=== PATIENT | male | born 1985 ===

== ENCOUNTER 2023-04-22 18:00 | Inpatient (IN) | payer OTHER ==
[~2023-04-22] VITALS: Ht 177.8 cm; Wt 90.7 kg
[~2023-04-22 18:00] MED LIST: MULT-1045 PO; THIA100T74 PO
[2023-04-22] MEDS ORDERED: LORAZEPAM 2 MG/1 ML VIAL IV ONE (18:15)
[2023-04-22] MEDS ORDERED: IV NORMAL SALINE 1000 ML BAG IV ONE (18:15)
[2023-04-22] MEDS ORDERED: LEVE500T9 PO (18:24)
[2023-04-22] MEDS ORDERED: IV D5/ 0.9% NACL 1,000 ML IV PRN (19:15)
[2023-04-22] MEDS ORDERED: levETIRAcetam IV 500 MG in IV DEXTROSE 5% 100 ML IV ONE (19:45)
[2023-04-22 19:53] LABS: BASOPHILS % (AUTO) 0.6 % (0.0-2.0); EOSINOPHILS % (AUTO) 0.9 % (0.0-7.0); HEMATOCRIT 40.5 % (36.7-47.1); HEMOGLOBIN 13.5 g/dL (12.5-16.3); LYMPHOCYTES # (AUTO) 0.8 K/uL (0.8-4.8); LYMPHOCYTES % (AUTO) 16.2 % (20.5-51.5); MEAN CORPUSCULAR HGB CONC 33 g/dL (32.5-36.3); MEAN CORPUSCULAR VOLUME 95.7 fL (73.0-96.2); MONOCYTES # (AUTO) 0.3 K/uL (0.1-1.30); MONOCYTES % (AUTO) 5.2 % (0.0-11.0); NEUTROPHILS # (AUTO) 3.8 K/uL (1.8-8.9); NEUTROPHILS % (AUTO) 77.1 % (38.5-71.5); PLATELET COUNT (AUTO) 154 K/uL (152-348); RED BLOOD CELL COUNT(AUTO) 4.23 MIL/uL (4.06-5.63); RED CELL DISTRIBUTION WIDTH 16.2 % (12.1-16.2); WHITE BLOOD COUNT (AUTO) 4.9 K/uL (3.6-10.2)
[2023-04-22] MEDS ORDERED: MAGNESIUM SULFATE/D5W 100 ML ONE ×2 (19:54→22:11)
[2023-04-22] MEDS ORDERED: LORAZEPAM 2 MG/1 ML VIAL ONE (19:55)
[2023-04-22 19:56] LABS: DIFFERENTIAL COMMENT 1
[2023-04-22] MEDS ORDERED: levETIRAcetam 500 MG/5 ML VIAL IV ONE (19:56)
[2023-04-22 20:05] LABS: CALCIUM 8.6 mg/dL (8.5-10.1); CARBON DIOXIDE 23 mmol/L (21-32); CHLORIDE 103 mmol/L (98-107); CREATININE 0.5 mg/dL (0.6-1.3); GLUCOSE 102 mg/dL (74-106); POTASSIUM 3.9 mmol/L (3.5-5.1); SODIUM SERUM 140 mmol/L (136-145); UREA NITROGEN, BLOOD 7 mg/dL (7-18)
[2023-04-22 20:08] LABS: ETHANOL 326 MG/DL (0-10)
[2023-04-22] MEDS: MAGNESIUM SULFATE/D5W 100 ML IV SCH ×2 (20:15→21:16)
[2023-04-22 20:19] LABS: ALANINE AMINOTRANSFERASE 25 U/L (16-63); ALBUMIN 3.6 g/dL (3.4-5.0); ALKALINE PHOSPHATASE 133 U/L (50-136); ASPARTATE AMINOTRANSFERASE 38 U/L (15-37); BILIRUBIN,DIRECT 0.1 mg/dL (0.0-0.2); BILIRUBIN,TOTAL 0.3 mg/dL (0.2-1.0)
[2023-04-22] MEDS ORDERED: THIAMINE HCL 200 MG/2 ML VIAL IV ONE (20:30)
[2023-04-22] MEDS ORDERED: DEXTROSE 5 %-0.45 % NACL 500 ML IV.SOLN IV ONE (21:15)
[2023-04-22] MEDS ORDERED: THIAMINE HCL 200 MG/2 ML VIAL ONE (21:24)
[2023-04-23] MEDS ORDERED: ONDANSETRON 4 MG/2 ML VIAL IV PRN (00:30)
[2023-04-23] MEDS ORDERED: ACETAMINOPHEN 325 MG TABLET PO PRN (00:30)
[2023-04-23] MEDS ORDERED: LORAZEPAM 2 MG/1 ML VIAL IV PRN (00:30)
[2023-04-23] MEDS ORDERED: IV NS 1000 ML 1,000 ML IV PRN (00:30)
[2023-04-23] MEDS ORDERED: CHLORDIAZEPOXIDE HCL 25 MG CAPSULE PO SCH (06:00)
[2023-04-23] MEDS ORDERED: CHLORDIAZEPOXIDE HCL 25 MG CAPSULE ONE (07:34)
[2023-04-23] MEDS ORDERED: ONDANSETRON 4 MG/2 ML VIAL ONE (07:47)
[2023-04-23] MEDS ORDERED: THIAMINE HCL 100 MG TABLET PO SCH ×2 (09:00)
[2023-04-23] MEDS ORDERED: FOLIC ACID 1 MG TABLET PO SCH (09:00)
[2023-04-23] MEDS ORDERED: levETIRAcetam 500 MG TABLET PO ONE (09:00)
[2023-04-23] MEDS ORDERED: MULTIVITAMINS,THERAPEUTIC TABLET PO SCH (09:00)
[2023-04-23] MEDS ORDERED: ENOXAPARIN SODIUM 40 MG/0.4 ML DISP.SYRIN SQ SCH (09:00)
[2023-04-23] MEDS ORDERED: levETIRAcetam 250 MG TABLET ONE (09:03)
[2023-04-23] MEDS ORDERED: ENOXAPARIN SODIUM 40 MG/0.4 ML DISP.SYRIN SQ ONE (09:03)
[2023-04-23] MEDS ORDERED: THIAMINE HCL 100 MG TABLET ONE (09:03)
[2023-04-23] MEDS ORDERED: FOLIC ACID 1 MG TABLET ONE (09:03)
[2023-04-23] MEDS ORDERED: LORAZEPAM 2 MG/1 ML VIAL ONE (09:22)
[2023-04-23 13:12] VITALS: BP 129/66; O2SAT 98
[2023-04-23] MEDS ORDERED: levETIRAcetam 500 MG TABLET PO SCH (21:00)
== END 2023-04-23 12:10 | disposition left against medical advice (07) | DRG 53 ==
LOC: ER 18:07 → MERGE 04-23 00:45 → TRANSITION 04-23 00:45
PROVIDERS: ADMIT Nurse Practitioner Acute Care; ATTEND Nurse Practitioner Acute Care
DX: G40.509 Epileptic seizures related to external causes, not intractable, without status epilepticus (principal); G92.8 Other toxic encephalopathy; F10.229 Alcohol dependence with intoxication, unspecified; F10.239 Alcohol dependence with withdrawal, unspecified; I10 Essential (primary) hypertension; Y90.8 Blood alcohol level of 240 mg/100 ml or more; Z87.820 Personal history of traumatic brain injury; F17.290 Nicotine dependence, other tobacco product, uncomplicated
CPT/HCPCS: 36415; 70450; 71045; 80299; 83735; 85025; 93005; G0378; G0480; J1650; J1953; J2060; J2405; J3411; J3475

== ENCOUNTER 2023-04-23 19:12 | Emergency (ER) | payer OTHER ==
[~2023-04-23] VITALS: Ht 175.3 cm; Wt 90.7 kg
[~2023-04-23 19:12] MED LIST changes: +LEVE500T9 PO
[2023-04-24 00:26] LABS: HEMATOCRIT 40.1 % (36.7-47.1)
[2023-04-24 00:27] LABS: *BILIRUBIN,URIN NEGATIVE (NEGATIVE); *BLOOD, URINE NEGATIVE (NEGATIVE); *CLARITY,URINE CLEAR (CLEAR); *COLOR,URINE YELLOW (YELLOW); *KETONES,URINE NEGATIVE (NEGATIVE); *PROTEIN,URINE NEGATIVE (NEGATIVE); *UROBILINOGEN,URINE 0.2 E.U./dl (NORMAL); LEUKOCYTE ESTERASE ,URINE NEGATIVE (NEGATIVE); NITRITE, URINE NEGATIVE (NEGATIVE); PH,URINE 6.5 (5.0-8.0); UGLUCOSE NEGATIVE (NEGATIVE)
[2023-04-24 00:34] LABS: BASOPHILS % (AUTO) 1.5 % (0.0-2.0); DIFFERENTIAL COMMENT 0; EOSINOPHILS % (AUTO) 1.3 % (0.0-7.0); HEMOGLOBIN 13.4 g/dL (12.5-16.3); LYMPHOCYTES # (AUTO) 0.8 K/uL (0.8-4.8); LYMPHOCYTES % (AUTO) 26.2 % (20.5-51.5); MEAN CORPUSCULAR HGB CONC 34 g/dL (32.5-36.3); MEAN CORPUSCULAR VOLUME 95.5 fL (73.0-96.2); MONOCYTES # (AUTO) 0.3 K/uL (0.1-1.30); MONOCYTES % (AUTO) 10.9 % (0.0-11.0); NEUTROPHILS # (AUTO) 1.9 K/uL (1.8-8.9); NEUTROPHILS % (AUTO) 60.1 % (38.5-71.5); PLATELET COUNT (AUTO) 159 K/uL (152-348); RED CELL DISTRIBUTION WIDTH 15.8 % (12.1-16.2); WHITE BLOOD COUNT (AUTO) 3.2 K/uL (3.6-10.2)
[2023-04-24 00:38] LABS: ALBUMIN 3.6 g/dL (3.4-5.0); BILIRUBIN,DIRECT 0.1 mg/dL (0.0-0.2); BILIRUBIN,TOTAL 0.3 mg/dL (0.2-1.0); CALCIUM 8.9 mg/dL (8.5-10.1); CREATININE 0.7 mg/dL (0.6-1.3); POTASSIUM 3.5 mmol/L (3.5-5.1)
[2023-04-24 00:47] LABS: *AMPHETAMINE, URINE NEGATIVE (NEGATIVE); *BARBITURATE, URINE POSITIVE (NEGATIVE); *BENZODIAZEPINE, URINE POSITIVE (NEGATIVE); *CANNABINOID, URINE NEGATIVE (NEGATIVE); *COCCAINE, URINE NEGATIVE (NEGATIVE); *OPIATE, URINE NEGATIVE (NEGATIVE); *PHENCYCLIDINE SCREEN,URINE NEGATIVE (NEGATIVE)
[2023-04-24 00:50] LABS: FENTANYL, URINE NEGATIVE (NEGATIVE)
[2023-04-24] MEDS ORDERED: LORAZEPAM 1 MG TABLET ONE (01:56)
[2023-04-24] MEDS ORDERED: LORAZEPAM 0.5 MG TABLET PO ONE (02:00)
[2023-04-24 02:37] VITALS: BP 127/72; TEMP 98.2; O2SAT 99
== END 2023-04-24 02:37 | disposition home or self-care (01) ==
LOC: ER 19:12
DX: F10.20 Alcohol dependence, uncomplicated (principal); F17.200 Nicotine dependence, unspecified, uncomplicated; Z79.899 Other long term (current) drug therapy; Y90.8 Blood alcohol level of 240 mg/100 ml or more
CPT/HCPCS: 36415; 85025; A4606; A4663; G0480

== ENCOUNTER 2025-03-01 20:27 | Emergency (ER) | payer OTHER ==
[~2025-03-01] VITALS: Ht 170.2 cm; Wt 91.6 kg
[2025-03-01 21:28] LABS: PLATELET COUNT (AUTO) 133 K/uL (152-348); RED BLOOD CELL COUNT(AUTO) 3.51 MIL/uL (4.06-5.63); RED CELL DISTRIBUTION WIDTH 21.4 % (12.1-16.2); WHITE BLOOD COUNT (AUTO) 3.4 K/uL (3.6-10.2)
[2025-03-01] MEDS ORDERED: LEVE500T9 PO (21:33)
[2025-03-01] MEDS: IV NORMAL SALINE 1000 ML BAG IV ONE (21:37)
[2025-03-01 21:41] LABS: ETHANOL 477.0 MG/DL (0-10)
[2025-03-01 21:42] LABS: *AMPHETAMINE, URINE NEGATIVE (NEGATIVE); *BARBITURATE, URINE NEGATIVE (NEGATIVE); *BENZODIAZEPINE, URINE POSITIVE (NEGATIVE); *CANNABINOID, URINE NEGATIVE (NEGATIVE); *COCCAINE, URINE NEGATIVE (NEGATIVE); *OPIATE, URINE NEGATIVE (NEGATIVE); *PHENCYCLIDINE SCREEN,URINE NEGATIVE (NEGATIVE); FENTANYL, URINE NEGATIVE (NEGATIVE)
[2025-03-01 21:47] LABS: CREATININE 0.7 mg/dL (0.6-1.3); SODIUM SERUM 144.0 mmol/L (136-145); UREA NITROGEN, BLOOD 6.0 mg/dL (7-18)
[2025-03-01 21:58] LABS: ASPARTATE AMINOTRANSFERASE 225.0 U/L (15-37); TOTAL PROTEIN, SERUM 7.6 g/dL (6.4-8.2)
[2025-03-02 05:00] VITALS: BP 124/93
[2025-03-02 06:38] VITALS: BP 122/90; O2SAT 96
[2025-03-02] MEDS ORDERED: GABA300C PO (18:18)
== END 2025-03-02 06:33 | disposition home or self-care (01) ==
LOC: ER 20:27
DX: G40.909 Epilepsy, unspecified, not intractable, without status epilepticus (principal); F17.290 Nicotine dependence, other tobacco product, uncomplicated; F10.229 Alcohol dependence with intoxication, unspecified; Z59.00 Homelessness unspecified; Z79.899 Other long term (current) drug therapy; Y90.8 Blood alcohol level of 240 mg/100 ml or more
CPT/HCPCS: 80076; 80048; 85025; 36415; 93005; 99285; 96365; 80320; 80307; 99406; J1953 ×2; J7040; A4606; A4663; G0480

== ENCOUNTER 2025-03-02 12:32 | Emergency (ER) | payer OTHER ==
[~2025-03-02] VITALS: Ht 170.2 cm; Wt 79.8 kg
[2025-03-02 12:54] LABS: PLATELET COUNT (AUTO) 150 K/uL (152-348); RED BLOOD CELL COUNT(AUTO) 3.86 MIL/uL (4.06-5.63); RED CELL DISTRIBUTION WIDTH 20.2 % (12.1-16.2); WHITE BLOOD COUNT (AUTO) 5.3 K/uL (3.6-10.2)
[2025-03-02 13:01] LABS: CREATININE 0.7 mg/dL (0.6-1.3); SODIUM SERUM 147.0 mmol/L (136-145); UREA NITROGEN, BLOOD 7.0 mg/dL (7-18)
[2025-03-02 13:06] LABS: ASPARTATE AMINOTRANSFERASE 175.0 U/L (15-37); TOTAL PROTEIN, SERUM 8.2 g/dL (6.4-8.2)
[2025-03-02 13:11] LABS: ETHANOL 554.0 MG/DL (0-10)
[2025-03-02] MEDS: IV NORMAL SALINE 1000 ML BAG IV ONE ×3 (13:15→14:50)
[2025-03-02] MEDS ORDERED: DIAZEPAM 10 MG/2 ML DISP.SYRIN ONE ×2 (13:16→14:33)
[2025-03-02] MEDS: DIAZEPAM 10 MG/2 ML DISP.SYRIN IV ONE ×2 (13:22→14:45)
[2025-03-02 14:52] VITALS: BP 123/88
[2025-03-02] MEDS ORDERED: LORAZEPAM 2 MG/1 ML VIAL ONE (15:40)
[2025-03-02] MEDS: LORAZEPAM 2 MG/1 ML VIAL IV ONE (15:59)
[2025-03-02 17:36] LABS: ETHANOL 437.0 MG/DL (0-10)
[2025-03-02] MEDS ORDERED: GABA300C PO (18:18)
[2025-03-02 18:57] VITALS: BP 119/88; O2SAT 96
== END 2025-03-02 18:18 | disposition home or self-care (01) ==
LOC: ER 12:32
DX: F10.129 Alcohol abuse with intoxication, unspecified (principal); K70.10 Alcoholic hepatitis without ascites; F17.290 Nicotine dependence, other tobacco product, uncomplicated; Z59.00 Homelessness unspecified; Z79.899 Other long term (current) drug therapy; Y90.9 Presence of alcohol in blood, level not specified
CPT/HCPCS: 36415; 85025; A4606; A4663; G0480; J2060; J3360; J7040